=== PATIENT | male | born 2000 | race Caucasian/White ===

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

== ENCOUNTER 2021-01-29 12:23 | Emergency (ER) | payer BC, MEDICAID ==
[~2021-01-29] VITALS: Ht 177.8 cm; Wt 118.0 kg
[2021-01-29] MEDS ORDERED: IBUP-2028 MT (12:57)
[2021-01-29 13:00] VITALS: BP 142/80
[2021-01-29 13:18] LABS: BASOPHILS % 0.7 % (0.0-2.0); EOSINOPHILS % 0.9 % (0.0-5.0); HEMOGLOBIN. 15.8 g/dL (14.0-18.0); LYMPHOCYTES % 21.5 % (20.0-50.0); MEAN CORPUSCULAR HEMOGLOBIN 29.2 pg (28.0-32.0); MEAN CORPUSCULAR VOLUME 88.7 fL (80.0-94.0); MEAN PLATELET VOLUME 9.5 fl (7.4-10.4); MONOCYTES % 4.5 % (2.0-8.0); NEUTROPHILS % 72.4 % (40.0-76.0); PLATELET 203 x1000/uL (130-400); RED BLOOD CELL COUNT 5.41 mill/uL (4.7-6.1); RED CELL DISTRIBUTION WIDTH 13.5 % (11.6-14.6)
[2021-01-29 13:22] LABS: CHLORIDE 107 mEq/L (98-107)
== END 2021-01-29 14:18 | disposition home or self-care (01) ==
LOC: ER 12:23
DX: R07.89 Other chest pain (principal); F12.10 Cannabis abuse, uncomplicated; J45.909 Unspecified asthma, uncomplicated; Z91.013 Allergy to seafood
CPT/HCPCS: 36415; 71045; 80053; 85025; 93005; 99285

== ENCOUNTER 2021-06-09 21:51 | Emergency (ER) | payer MEDICAID ==
[~2021-06-09] VITALS: Ht 177.8 cm; Wt 125.0 kg
[~2021-06-09 21:51] MED LIST changes: +IBUP-2028 MT
[2021-06-10] MEDS ORDERED: ONDANSETRON 4MG ODT PO STA (00:12)
[2021-06-10 00:43] LABS: CHLORIDE 107 mEq/L (98-107)
[2021-06-10 00:48] LABS: BASOPHILS % 0.5 % (0.0-2.0); EOSINOPHILS % 0.7 % (0.0-5.0); HEMATOCRIT. 43.2 % (42.0-52.0); HEMOGLOBIN. 15.2 g/dL (14.0-18.0); LYMPHOCYTES % 29.5 % (20.0-50.0); MEAN CORPUSCULAR HEMOGLOBIN 30.4 pg (28.0-32.0); MEAN CORPUSCULAR VOLUME 86.4 fL (80.0-94.0); MONOCYTES % 7.7 % (2.0-8.0); NEUTROPHILS % 61.6 % (40.0-76.0); PLATELET 245 x1000/uL (130-400); RED BLOOD CELL COUNT 4.99 mill/uL (4.7-6.1); RED CELL DISTRIBUTION WIDTH 13.2 % (11.6-14.6)
[2021-06-10] MEDS ORDERED: METO5TAB86 MT (02:05)
[2021-06-10 02:20] VITALS: BP 137/84
== END 2021-06-10 02:23 | disposition home or self-care (01) ==
LOC: ER 21:51
DX: K76.0 Fatty (change of) liver, not elsewhere classified (principal); R03.0 Elevated blood-pressure reading, without diagnosis of hypertension; R11.10 Vomiting, unspecified
CPT/HCPCS: 36415; 76705; 80053; 83690; 85025; 99284; Q0162

== ENCOUNTER 2025-01-16 23:50 | Emergency (ER) | payer OTHER, MEDICAID ==
[~2025-01-16] VITALS: Ht 182.9 cm; Wt 127.1 kg
[~2025-01-16 23:50] MED LIST changes: +METO5TAB86 MT
[2025-01-17 00:03] VITALS: BP 148/88; TEMP 36.8; O2SAT 100
[2025-01-17 00:06] VITALS: PULSE 95; RESP 16; O2SAT 98
== END 2025-01-17 03:49 | disposition left against medical advice (07) ==
LOC: ER 23:50
DX: T30.0 Burn of unspecified body region, unspecified degree (principal); Z53.21 Procedure and treatment not carried out due to patient leaving prior to being seen by health care provider; X58.XXXA Exposure to other specified factors, initial encounter; Y93.89 Activity, other specified; Y92.89 Other specified places as the place of occurrence of the external cause; Y99.8 Other external cause status

== ENCOUNTER 2025-07-27 22:05 | Emergency (ER) | payer MEDICAID, OTHER ==
[~2025-07-27] VITALS: Ht 182.9 cm; Wt 129.0 kg
[2025-07-27 22:16] VITALS: O2SAT 99
[2025-07-28] MEDS: KETOROLAC 15MG/ML VIAL IM ONE (00:15)
[2025-07-28] MEDS ORDERED: NAPR-1176 MT (00:34)
[2025-07-28 00:49] VITALS: BP 138/77; PULSE 91; RESP 16; TEMP 37; O2SAT 100
== END 2025-07-28 00:58 | disposition home or self-care (01) ==
LOC: ER 22:05
DX: R07.9 Chest pain, unspecified (principal); J45.909 Unspecified asthma, uncomplicated
CPT/HCPCS: 99284; 71045; 93005; 96372; J1885

== ENCOUNTER 2025-08-15 20:49 | Emergency (ER) | payer MEDICAID, OTHER ==
[~2025-08-15] VITALS: Ht 182.9 cm; Wt 132.0 kg
[~2025-08-15 20:49] MED LIST changes: +NAPR-1176 MT
[2025-08-15 21:17] VITALS: O2SAT 99
[2025-08-16 00:58] LABS: BASOPHILS % 1.0 % (0.0-2.0); EOSINOPHILS % 6.3 % (0.0-5.0); HEMATOCRIT. 42.3 % (42.0-52.0); HEMOGLOBIN. 14.5 g/dL (14.0-18.0); LYMPHOCYTES % 46.2 % (20.0-50.0); MEAN PLATELET VOLUME 9.0 fl (7.4-10.4); MONOCYTES % 7.3 % (2.0-8.0); NEUTROPHILS % 39.2 % (40.0-76.0); PLATELET 222 x1000/uL (130-400); RED BLOOD CELL COUNT 4.69 mill/uL (4.7-6.1); RED CELL DISTRIBUTION WIDTH 14.6 % (11.6-14.6)
[2025-08-16 01:21] LABS: CREATININE 0.9 mg/dL (0.6-1.3); UREA NITROGEN BLOOD 12 mg/dL (9-23)
[2025-08-16] MEDS: KETOROLAC 30MG/ML VIAL IM ONE (01:30)
[2025-08-16] MEDS ORDERED: IBUP-1455 MT (05:26)
[2025-08-16 06:05] VITALS: BP 130/82; PULSE 77; RESP 13; TEMP 36.6; O2SAT 97
== END 2025-08-16 06:10 | disposition home or self-care (01) ==
LOC: ER 20:49
DX: M79.604 Pain in right leg (principal); M79.605 Pain in left leg; J45.909 Unspecified asthma, uncomplicated; Z79.1 Long term (current) use of non-steroidal anti-inflammatories (NSAID)
CPT/HCPCS: 99285; 93970; 80048; 85025; 85379; 36415; 96372; J1885